=== PATIENT | male | born 1990 | race Caucasian/White ===

== ENCOUNTER → 2021-09-28 13:44 | Outpatient (CLI) | payer OTHER, SELFPAY ==
--- NOTE | 2021-09-28 | DI.MRI.S_ITS ---
PROCEDURE: MR HEAD/BRAIN WO/W CON INDICATIONS: Diagnostic imaging inconclusive TECHNIQUE: Noncontrast axial T1 spin echo, axial T2 fast spin echo, sagittal and axial FLAIR, coronal T2 fast spin echo, axial gradient echo, axial diffusion and ADC through the brain. After the administration of contrast, axial and coronal 3D VIBE or T1 spin echo with fat saturation through the brain. COMPARISON: [facility], RG, MRI BRAIN W/WO CONTRAST, 04/26/2019, 14:58. [facility] Outside Film, MR, MR BRAIN WITH/WITHOUT CONTRAST, 04/26/2019, 14:58. FINDINGS: Image quality: Excellent. CSF Spaces: Basal cisterns are patent. No extra-axial fluid collections. Ventricles are normal in size and shape. Brain: No midline shift. No acute intracranial bleeds . Small amount of low gradient echo signal intensity material overlies the left parietal lobe and underlies the left frontal craniotomy. This is unchanged. 8 mm diameter well-circumscribed high T2 signal intensity focus within the left anteroinferior cerebellum is unchanged. No abnormal intracranial enhancement. The brainstem appears normal. Diffusion-weighted images demonstrate no acute ischemic insults. No chronic ischemic insults. Normal intravascular flow voids are present. Skull and face: Left parietal craniotomy.. Orbits appear normal. Sinuses: Sinuses and mastoids appear clear. IMPRESSION: 1. No acute intracranial abnormality. 2. Stable left inferior cerebellar cyst. 3. 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 Dictated by: Jaylan Blair M.D. on 09/30/2021 at 8:20 Approved by: Jaylan Blair M.D. on 09/30/2021 at 8:24
== END ==
PROVIDERS: Referring Provider Student in an Organized Health Care Education/Training Program; Visit Provider Student in an Organized Health Care Education/Training Program
DX: G93.0 Cerebral cysts (principal); R93.9 Diagnostic imaging inconclusive due to excess body fat of patient
CPT/HCPCS: 70553; A9579

== ENCOUNTER → 2021-10-05 11:18 | Outpatient (CLI) | payer OTHER, SELFPAY ==
--- NOTE | 2021-10-05 11:19 | DI.MRI.S_ITS ---
PROCEDURE: MR CERVICAL SPINE WO/W CON INDICATIONS: The patient gives a history of pain and numbness down both arms. DIAGNOSTIC IMAGING INCONCLUSIVE DUE TO BODY FAT TECHNIQUE: Noncontrast sagittal T1 spin echo and T2 fast spin echo, sagittal STIR, foraminal oblique sagittal T2 fast spin echo, axial gradient echo or T2 fast spin echo through the cervical spine. After the administration of contrast, axial and sagittal T1 spin echo with fat saturation through the cervical spine. COMPARISON: [facility], MR, MR CERVICAL SPINE WITHOUT CONTRAST, 04/26/2019, 14:30. [facility] Outside [facility], MR, MR CERVICAL SPINE WITHOUT CONTRAST, 05/07/2016, 8:34. [facility] Outside Film, CT, CT CERVICAL SPINE WITHOUT CONTRAST, 05/07/2016, 5:41. [facility], MR, MR HEAD/BRAIN WO/W CON, 09/28/2021, 14:08. [facility] [place], CR, XR CERVICAL SPINE 6+ VIEWS, 05/01/2019, 14:54. (No written reports accompany outside examinations, images only.) FINDINGS: Image quality: Diagnostic Alignment and curvature: There is normal bony alignment. Marrow: Marrow is normal in overall signal, without suspicious enhancement. Spinal cord: Visualized spinal cord has normal size and signal. No cerebellar tonsillar herniation. No abnormal intramedullary enhancement. Paraspinous soft tissues: No paravertebral masses or suspicious enhancement. C2-3: Normal appearance. C3-4: Normal appearance. C4-5: Normal appearance. C5-6: Moderate loss of disc height is seen. Loss of disc signal is seen. Mild to moderate disc osteophyte complex is seen is eccentric right, with a slight central/right disc osteophyte. Mild to moderate facet hypertrophy is seen. There is at least moderate right-sided and moderate left-sided neural foraminal narrowing. Moderate to severe central canal narrowing is seen. When compared to the outside 2019 examination, the degenerative changes are believed to be slightly progressed. C6-7: The disc height and disc signal are relatively well preserved. A mild degree of generalized disc osteophyte complex is seen. Mild facet joint hypertrophy is seen. Mild bilateral neural foraminal narrowing is seen. No significant central canal narrowing is seen. When comparison is made with the prior images, these findings are similar. C7-T1: Normal appearance. IMPRESSION: Focal lower cervical spine degenerative changes are seen, which are worst at C5-C6. The degenerative changes at this level are slightly progressed compared to the outside 2019 examination. No abnormal enhancement is seen. Dictated by: Pola Rooney M.D. on 10/06/2021 at 8:24 Approved by: Pola Rooney M.D. on 10/06/2021 at 8:28
== END ==
PROVIDERS: Referring Provider Student in an Organized Health Care Education/Training Program; Visit Provider Student in an Organized Health Care Education/Training Program
DX: M47.812 Spondylosis without myelopathy or radiculopathy, cervical region (principal); M79.602 Pain in left arm; M79.601 Pain in right arm; R20.0 Anesthesia of skin; R93.9 Diagnostic imaging inconclusive due to excess body fat of patient
CPT/HCPCS: 72156

== ENCOUNTER 2022-09-20 00:56 | Emergency (ER) | payer OTHER, SELFPAY ==
[2022-09-20 01:02] VITALS: BP 125/68; PULSE 70; RESP 16; TEMP 36.6; O2SAT 100; BMI 25.8
--- NOTE | 2022-09-20 01:14 | DI.RAD.S_ITS ---
PROCEDURE: XR KNEE RT 4V INDICATIONS: knee injury TECHNIQUE: 3 views of the knee were acquired. COMPARISON: None. FINDINGS: Bones: No fractures or dislocations. No suspicious bony lesions. Soft tissues: There is a moderate joint effusion. No suspicious soft tissue calcifications. IMPRESSION: Moderate joint effusion, without an acute bony abnormality seen by plain film. If it would be helpful for clinical management decision making, please consider a dedicated, scheduled knee MRI for further evaluation (assuming that there is no contraindication). Dictated by: Pola Rooney M.D. on 09/20/2022 at 0:42 Approved by: Pola Rooney M.D. on 09/20/2022 at 0:42
--- NOTE | 2022-09-20 03:01 | ED_ITS ---
HPI - Extremity Injury (Lower) General Chief Complaint: Extremity Injury, Lower Stated Complaint: Twisted Rt. 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 He is able to bear weight on the right side but feels that his knee is unstable. Describes no other injuries. No recent fever, cough, chills, vomiting diarrhea, nausea Patient History Medical History (Updated 09/20/22 @ 03:20 by Awilda Aguila MD) Right patella fracture Social History Smoking Status: Current every day smoker Smoking Status: Current every day smoker tobacco type: cigarettes alcohol intake frequency: holidays/special occasions only Exam Initial Vital Signs Initial Vital Signs: Vital Signs Temperature 97.8 F 09/20/22 01:02 Pulse Rate 70 09/20/22 01:02 Respiratory Rate 16 09/20/22 01:02 Blood Pressure 125/68 09/20/22 01:02 Pulse Oximetry 100 09/20/22 01:02 Oxygen Delivery Method Room Air 09/20/22 01:02 General: Alert appropriate in no acute distress Respiratory: Able to speak in full sentences, no obvious respiratory distress Skin: No obvious rashes, warm and dry Neurologic: Grossly intact no obvious asymmetries or abnormalities Psych: appropriate insight and affect, cooperative extremity: Right knee with minor medial effusion. Tenderness over the patellar tendon insertion site without tenderness over the patella itself. No tenderness over the distal quadriceps, medial and lateral collateral ligaments are stable. Anterior and posterior cruciate ligaments are difficult to fully assess secondary to tenderness and effusion. He is neurovascularly intact Course Orders Ordered: ED Orders 09/20/22 01:14 XR knee RT 4V Stat Vital Signs Vital signs: Vital Signs - 8 hr 09/20/22 01:02 Temperature 97.8 F Pulse Rate 70 Respiratory Rate 16 Blood Pressure 125/68 Pulse Oximetry 100 Oxygen Delivery Method Room Air MDM - Extremity Injury (Lower) Imaging Data x-ray right knee: Radiologist's Impression: FINDINGS:? ? Bones:? No fractures or dislocations.? No suspicious bony lesions.? ? Soft tissues:? There is a moderate joint effusion.? No suspicious soft tissue calcifications.? ? ? IMPRESSION:? Moderate joint effusion, without an acute bony abnormality seen by plain film. ? If it would be helpful for clinical management decision making, please consider a dedicated, scheduled knee MRI for further evaluation (assuming that there is no contraindication).? ? ? Dictated by: Pola Rooney M.D. on 09/20/2022 at 0:42 ? ? MDM Narrative Medical decision making narrative: CC: Acute right knee injury. Acute, uncertain diagnosis potential for chronic injury Corroborating data: Data collected from: patient, Differential considered: ligamentous injury, ACL/ PCL rupture, patellar tendon rupture, quadriceps rupture, acute knee strain, knee fractures Exam documented above, pertinent findings include: mild medial effusion, tenderness over distal patellar insertion site. Patient reports the knee feels unstable when he puts weight on it. Complete exam is challenging given acute pain and swelling Imaging studies independently reviewed: x-ray right knee shows no bony injury, does confirm effusion Treatments: ibuprofen andTylenol orally. Knee immobilizer and crutches Re-evaluations: knee immobilizers placed by nursing staff evaluated by me. NeurovascularlyIntact post placement Discussion: 32-year-old gentleman with fall and injury to the right knee. Unstable with unclear diagnosis but concern for tendon rupture and/or patellar tendon rupture. Will need follow-up with orthopedic surgery. Discussed importance of using the knee immobilizer given the instability the knee. He was not interested in any narcotic pain medication and we discussed use of ibuprofen and Tylenol for pain control. He is safe for discharge home Disposition: see below, along with detailed discharge instructions that have been reviewed with patient as well as indications for ED re-evaluation and additional outpatient follow up Discharge Plan Departure Patient Disposition: Home Clinical Impression: Internal derangement of knee Qualifiers: Laterality: right Qualified Code(s): M23.91 - Unspecified internal derangement of right knee Instructions: DI for Knee Sprain Activity Restrictions/Additional Instructions: thank you for coming in today I am sorry that you ended up injuring your knee. I am concerned that you do have significant injury and you do need follow-up with orthopedic surgery. X- ray tonight does not show bony abnormalities and you likely will need advanced imaging to fully diagnose your injury. Please use the knee immobilizer. With the description of feeling unstable I am concerned that you will fall again and do further injury to the knee. Use the crutches as necessary for stabilization. Using 400 mg of ibuprofen (2 [id number] pills) and 1 Tylenol every 6 hours can be very helpful in controlling pain. Also consider keeping the leg elevated and icing the knee as needed please call [facility] at [phone] and let them know that you were in the emergency department with acute knee injury over the weekend and need to be evaluated If you find that you are getting worse or develop any new symptoms, please feel free to return to the emergency department for further evaluation. Referrals: Santos Roman [Primary Care Provider] - Stand Alone Forms: Patient Portal/API
[2022-09-20] MEDS: ACETAMINOPHEN 325 MG TABLET PO (03:40)
[2022-09-20] MEDS: IBUPROFEN 400 MG TABLET PO (03:40)
[2022-09-20 03:57] VITALS: BP 122/70; PULSE 75; RESP 16; O2SAT 100
== END 2022-09-20 03:59 | disposition home or self-care (01) ==
PROVIDERS: Emergency Provider Emergency Medicine; PCP Student in an Organized Health Care Education/Training Program
DX: M23.91 Unspecified internal derangement of right knee (principal); W01.0XXA Fall on same level from slipping, tripping and stumbling without subsequent striking against object, initial encounter
CPT/HCPCS: 73564; 99283